=== PATIENT | female | born 1990 | race Caucasian/White ===

== ENCOUNTER 2019-07-08 16:55 | Outpatient (RCR) | payer OTHER, SELFPAY ==
[2019-07-09] MEDS: RHO(D) IMMUNE GLOBULIN 300 MCG SYRINGE IM (12:54)
== END 2019-10-06 23:59 | disposition home or self-care (01) ==
LOC: ANHLAB 16:55
PROVIDERS: PCP Advanced Practice Midwife; Visit Provider Advanced Practice Midwife
DX: O36.0990 Maternal care for other rhesus isoimmunization, unspecified trimester, not applicable or unspecified (principal); Z3A.00 Weeks of gestation of pregnancy not specified
CPT/HCPCS: 36415; 90384; 96372; J2790

== ENCOUNTER 2019-08-15 15:08 | Outpatient (RCR) | payer OTHER, SELFPAY ==
[2019-07-28 17:27] VITALS: BP 134/70; PULSE 106
[2019-08-15 15:54] VITALS: BP 112/62; PULSE 103
== END 2019-09-17 07:36 | disposition home or self-care (01) ==
LOC: ANHOBOP 15:08
PROVIDERS: PCP Advanced Practice Midwife; Visit Provider Obstetrics & Gynecology
DX: O24.419 Gestational diabetes mellitus in pregnancy, unspecified control (principal); Z3A.32 32 weeks gestation of pregnancy; Z3A.34 34 weeks gestation of pregnancy
CPT/HCPCS: 59025

== ENCOUNTER 2019-08-18 14:00 | Outpatient (RCR) | payer OTHER, SELFPAY ==
--- NOTE | 2019-06-30 15:21 | PTOPEVAL ---
INITIAL PHYSICAL THERAPY EVALUATION and PLAN OF CARE Thank you for referring Tomeka to [facility]. Please review, sign, date and return this plan of care LEOBARDO. She will be seen 2x/wk x 4 wks in PT. I agree with and certify that the following plan of care is medically necessary. Referring Physician Date Admitting Provider: Attending Provider: María Polo CNM Referring Provider: *PT Outpatient Evaluation Start: 06/30/19 13:54 Freq: Status: Active Protocol: Document 06/30/19 13:45 ISIDRO (Rec: 06/30/19 15:21 ISIDRO [id number]) Therapy Assessment Status Assessment Status Assessment Status Evaluation Outpatient Past Medical History Neurological History Hx Neurological Disorders No Significant History Cardiovascular History Hx Cardiac Disorders No Significant History Respiratory History Hx Respiratory Disorders No Significant History Gastrointestinal History Hx Gastrointestinal Disorders No Significant History Genitourinary History Hx Genitourinary Disorders No Significant History Musculoskeletal History Hx Back Pain Yes: beginning May 2019-during Hematological History Hx Hematological Disorders No Significant History Endocrine History Hx Endocrine Disorders No Significant History HEENT History Hx HEENT Disorders No Significant History Integumentary History Hx Skin Disorders No Significant History Reproductive History Hx Reproductive Disorders No Significant History Evaluation Information Problem Diagnosis back and R leg pain Onset ~ 1 month ago Additional Evaluation Detail slight similiar pain with previous pregnancies - x 4, this is 5th ; no difficulties with labor and delivery - smaller babies Subjective Information just began to notice it - Query Text:As Reported By Patient/ walking one day - if pain hits Family - increased difficulty with walking - wt bearing on R leg. Some days does okay with walking. Always worse when lying down. Hard to get up in morning. Difficulty with getting sleep - tossing/ turning/up for urination Pain can run down entire R leg - shooting. Almost constant when lying down this episode of pain with Prior Level of Function Activity Level (Last 3 Months) Occupation stay at home Mom
--- NOTE | 2019-07-14 14:27 | PCPTNOTE ---
Patient called & cancelled scheduled appointment this date due to snowy weather.
--- NOTE | 2019-07-21 12:43 | PCPTNOTE ---
Patient called & cancelled scheduled appointment this date.
--- NOTE | 2019-07-30 10:28 | PTOPEVAL ---
PHYSICAL THERAPY RE-EVALUATION NOTE AND UPDATED PLAN OF CARE Thank you for referring Eve to [facility] [place] [facility] [place]. Please review, sign, date and return this updated plan of care LEOBARDO. Eve with continue in PT 1x/wk x 4 more weeks for further resolution of her symptoms. I agree with and certify that the following plan of care is medically necessary. Referring Physician Date Admitting Provider: Attending Provider: María Polo CNM Referring Provider: *PT Outpatient Evaluation Start: 06/30/19 13:54 Freq: Status: Active Protocol: Document 07/30/19 09:10 ISIDRO (Rec: 07/30/19 10:28 [email or web address] [id number]) Therapy Assessment Status Assessment Status Assessment Status Re-evaluation Evaluation Information Problem Subjective Information Eve states that sleeping Query Text:As Reported By Patient/ ability has improved 70% or Family better. After for sitting for 15 minutes or greater, will have discomfort with standing - R lower back region. If she can get this side to pop then she will be okay. Household activities such as vacuuming, picking up toys, etc are still difficult for her. Also, while driving - moving foot from brake to gas and back can be uncomfortable until she feels the pop in R lower back. Pain Assessment Timing of Pain Assessment Timing of Pain Assessment Assessment Pain Scale Pain Scale Used Numeric (1 - 10) Self Report Pain Assessment Lower Back Reported Pain Level 4 Pain Description Aching,Pulling,Sharp Current Pain Intensity 4 Lowest Pain Intensity 2 Greatest Pain Intensity 8 Pain Aggravating Factors Bending,Prolonged Position Other Pain Aggravating Factors transitional activities-sit to stand, bending over, brake/ gas pedal motion Pain Behaviors Guarding Pain Relief Interventions Used By Exercise Patient Interventions Used By Clinicians Exercise,Heat,Joint Mobilization,Mobilization, Manual Therapy Techniques, Myofascial Release Pain Score Pain Score 4: Self Report Cervical and Lumbar ROM Lumbar ROM Lumbar ROM 50% of Normal Lumbar Comments improved pelvic alignment, but decreased sacral mobility
--- NOTE | 2019-08-11 09:41 | PCPTNOTE ---
vEe called & cancelled scheduled appointment this date due to having another scheduled appointment elsewhere.[ ]
--- NOTE | 2019-08-19 08:25 | PTOPEVAL ---
PHYSICAL THERAPY DISCHARGE NOTE Thank you for referring Eve to [facility]. All goals have been achieved in PT. If her discomfort returns post , I would enjoy seeing her once she is able to resume PT. I agree with Eve's discharge from PT. Referring Physician Date Admitting Provider: Attending Provider: María Polo CNM Referring Provider: *PT Outpatient Evaluation Start: 06/30/19 13:54 Freq: Status: Active Protocol: Document 08/18/19 14:10 ISIDRO (Rec: 08/19/19 08:25 ISIDRO [id number]) Therapy Assessment Status Assessment Status Assessment Status Discharge Evaluation Information Problem Subjective Information Eve reports the R sided Query Text:As Reported By Patient/ popping (in R SIJ region) Family doesn't happen as often and when it does she can get it to pop back into place easily now. With transfers from sitting to standing - the popping happens every once in awhile. Sleeping is at least 90% better. Ability to do household activities - 90% improved as well. Pain Assessment Timing of Pain Assessment Timing of Pain Assessment Assessment Pain Scale Pain Scale Used Numeric (1 - 10) Self Report Pain Assessment Lower Back Reported Pain Level 0 Current Pain Intensity 0 Lowest Pain Intensity 0 Greatest Pain Intensity 5 Pain Score Pain Score 0: Self Report Cervical and Lumbar ROM Lumbar ROM Lumbar Comments Pelvis level in standing - equal mobility at SIJ with trunk ROM which is now limited into flexion from . Extension and side bending are WNL. 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 Episodes of discomfort/popping have greatly lessened and not as intense as they were initially . Eve is now able to sleep with increase comfort/ability as well as perform usual ADLs
== END 2019-08-28 14:26 | disposition home or self-care (01) ==
LOC: ANHPT 14:00
PROVIDERS: PCP Advanced Practice Midwife; Visit Provider Advanced Practice Midwife
DX: M54.9 Dorsalgia, unspecified (principal); M79.669 Pain in unspecified lower leg
CPT/HCPCS: 97110; 97140; 97162

== ENCOUNTER 2019-09-16 05:15 | Inpatient (IN) | payer OTHER, SELFPAY ==
[2019-09-16] VITALS (98 sets, daily range): BP systolic 79–142; BP diastolic 53–106; PULSE 60–257; RESP 18; TEMP 36.5–36.7; O2SAT 75–100; BMI 27.5
--- NOTE | 2019-09-16 06:11 | LDADM ---
This patient, Tomeka Leslie, was admitted to Labor/Delivery/Recovery 103 on 09/16/19 at 05:15. Plans for labor, pain management and were discussed with patient. Patient/family oriented to hospital policies and general routines including ID bracelet, bed and alarms, visiting hours, pain management, procedures, bathroom and other care routines, personal items, smoking policy, room service/diet and guest tray routines, infant security routines, and visiting hours. Patient/Family are encouraged to report perceived risks to care and to ask questions if they do not understand what they are told or what they should do. See OBIX for further documentation.
[2019-09-16 06:26] LABS: Basophils Percent Auto 0.5 % (0.2-1.2); Eosinophils Absolute Auto 0.1 K/mm3 (0-0.3); Hematocrit 34.5 % (37.0-47.0); Hemoglobin 11.3 g/dL (12.0-15.0); Immature Granulocyte Absolute 0.09 K/mm3 (0.00-0.031); Lymphocytes Absolute Auto 1.34 K/mm3 (0.9-3.2); Lymphocytes Percent Auto 15.1 % (18.3-44.2); Mean Corpuscular HGB Conc 32.8 g/dl (32-36); Mean Corpuscular Hemoglobin 29.4 pg (26-34); Mean Corpuscular Volume 89.8 fl (80-100); Mean Platelet Volume 9.1 fl (7.4-10.4); Monocytes Absolute Auto 0.6 K/mm3 (0.1-0.6); Monocytes Percent Auto 7.2 % (2.6-8.5); Neutrophils Absolute Auto 6.7 K/mm3 (1.3-6.7); Neutrophils Percent Auto 75.2 % (45.5-73.1); Platelet Count Result 303 k/mm3 (150-375); Red Blood Count 3.84 M/mm3 (4.2-5.4); Red Cell Distribution Width 16.1 % (11.5-14.5); White Blood Count 8.9 K/mm3 (4.5-10.0)
[2019-09-16] MEDS: LACTATED RINGERS 1,000 ML 125 ML IV CONT ×2 (06:34→09:28)
--- NOTE | 2019-09-16 07:30 | P.HP_ITS ---
Obstetrics - Admit Note Admission Note: record reviewed. No pertinent additions to the history and/or any subsequent changes in the physical findings that are not consistent with the expected course of the were found. IOL, diet controlled GDM Additions to the history and/or subsequent changes in the physical findings fo llow. None.
[2019-09-16 08:09] LABS: Glucose Point of Care 94 (65-105)
[2019-09-16 09:00] LABS: Rapid Plasma Reagin Non-Reactive (NonReactive)
--- NOTE | 2019-09-16 09:10 | WPDANESEPP ---
Anes - Eval Pre Procedure Procedure: Labor Epidural Date/Time: 09/16/19 09:10 Surgeon: Everardo Preop Diagnosis: Labor Pain Pre Op Diagnosis: induction of labor Patient Data Age: 29 Gender: F Height: 5 ft 6 in Weight: 77.3 kg Last Vital Signs Pulse 89 09/16/19 08:46 BP 140/88 09/16/19 08:46 Allergies Allergy/AdvReac Type Severity Reaction Status Date / Time metoclopramide Allergy Mild Muscle Verified 11/21/18 18:30 Spasms Sulfa (Sulfonamide Allergy Mild Vomiting Verified 11/21/18 18:30 Antibiotics) Home Medications Medication Instructions Recorded Confirmed Type PNV cmb#95-ferrous fumarate-FA 1 tablet PO DAILY 08/15/19 08/15/19 History [] Phenergan 1 tablet PO Q6H PRN 08/15/19 08/15/19 History ferrous sulfate [Slow Fe] 142 mg PO DAILY 08/15/19 08/15/19 History insulin NPH isoph U-100 human 10 unit SUBCUT BID 08/15/19 08/15/19 History [Novolin N NPH U-100 Insulin] Laboratory Tests 09/16/19 09/16/19 09/16/19 05:59 05:59 05:59 WBC 8.9 K/mm3 K/mm3 (4.5-10.0) RBC 3.84 M/mm3 L M/mm3 (4.2-5.4) Hgb 11.3 g/dL L g/dL (12.0-15.0) Hct 34.5 % L % (37.0-47.0) MCV 89.8 fl fl (80-100) MCH 29.4 pg pg (26-34) MCHC 32.8 g/dl g/dl (32-36) RDW 16.1 % H % (11.5-14.5) Plt Count 303 k/mm3 k/mm3 (150-375) MPV 9.1 fl fl (7.4-10.4) Immature Gran % (Auto) 1.0 % H % (0-0.5) Neut % (Auto) 75.2 % H % (45.5-73.1) Lymph % (Auto) 15.1 % L % (18.3-44.2) Ida % (Auto) 7.2 % % (2.6-8.5) Eos % (Auto) 1.0 % % (0-4.4) Baso % (Auto) 0.5 % % (0.2-1.2) Lymph # (Auto) 1.34 K/mm3 K/mm3 (0.9-3.2) Ida # (Auto) 0.6 K/mm3 K/mm3 (0.1-0.6) Eos # (Auto) 0.1 K/mm3 K/mm3 (0-0.3) Baso # (Auto) 0.0 K/mm3 K/mm3 (0.0-0.1) Abs Immat Gran (auto) 0.09 K/mm3 H K/mm3 (0.00-0.031) Absolute Neuts (auto) 6.7 K/mm3 K/mm3 (1.3-6.7) Absolute Nucleated RBC 0.0 K/mm3 K/mm3 (0.0-0.012) Nucleated RBC % 0.0 % % (0.0-0.2) POC Capillary Glucose RPR Non-reactive (NonReactive) Blood Type A Negative Antibody Screen Negative 09/16/19 08:07 WBC RBC Hgb Hct MCV MCH MCHC RDW Plt Count MPV Immature Gran % (Auto) Neut % (Auto) Lymph % (Auto) Ida % (Auto) Eos % (Auto) Baso % (Auto) Lymph # (Auto) Ida # (Auto) Eos # (Auto) Baso # (Auto) Abs Immat Gran (auto) Absolute Neuts (auto) Absolute Nucleated RBC Nucleated RBC % POC Capillary Glucose 94 mg/dl mg/dl (65-105) RPR Blood Type Antibody Screen : gestational age (MISSY 09/21/19, ) Patient hx anesthesia problems: none Family hx anesthesia problems: none PMFSH Social History Social History Smoking packs per day: 0.1 Smoking cigarettes per day: 2.0 Years smoked: 2 Smoking pack-years: 0.20 Smoking status: Former smoker Substance use: never Gender identity (if verbalized by the patient): Female Spiritual care concerns: No Exam Day of Procedure 09/16/19 09:10
[2019-09-16] MEDS: ONDANSETRON INJ 4 MG/2 ML VIAL IV PUSH (09:35)
[2019-09-16 10:05] LABS: Glucose Point of Care 87 (65-105)
[2019-09-16 12:15] LABS: Glucose Point of Care 88 (65-105)
--- NOTE | 2019-09-16 12:46 | P.PCNOB_ITS ---
OB - Delivery Note Procedure Delivery date: 09/16/19 Procedure: vaginal delivery events: Gestational Diabetes Intrapartal events: None Induction method: AROM and per pitocin protocol Delivery monitor: external FHT and external uterine Route of delivery: Laceration description: Perineal - 1st Degree Delivery repair: vicryl Specimen: Yes Estimated blood loss (mL): 75 Anesthesia type: Epidural Narrative: small left labial hematoma noted after repair [place] Baby Date of : 09/16/19 Time of : 12:31 Weeks of gestation at delivery: 39 Infant gender: Male Weight (pounds): 6 Weight (ounces): 6 presentation: vertex position: Right Occiput Anterior Placenta delivery description: Spontaneous cord vessel description: 3 Vessels, Nuchal Cord, True Knot, Loose and Clamped/Cut score one minute: 8 score five minutes: 9
[2019-09-16 13:53] LABS: Amphetamine Screen Urine Negative (Negative); Barbiturate Screen Urine Negative (Negative); Benzodiazepines Screen Urine Negative (Negative); Cannabinoid Screen Urine Positive (Negative); Cocaine Screen Urine Negative (Negative); Methadone Screen Urine Negative (Negative); Opiate Screen Urine Negative (Negative); Phencyclidine Screen Urine Negative (Negative)
--- NOTE | 2019-09-16 16:03 | PC.NURSE ---
PT arrived on unit via wheelchair accompanied by spouse and and taken to room 279. PT oriented to room and surrounding area. PT introductions made and plan of care discussed per post , pain management, breast feeding, daily care activities. Welcome packet reviewed and discussed. PT verbalized understanding of such instructions.
[2019-09-16] MEDS: IBUPROFEN 600 MG TABLET PO (18:22)
[2019-09-16] MEDS: LANOLIN (LANSINOH) 7.5 GM CREAM 1 APPLIC TOPICAL (18:23)
[2019-09-16] MEDS: DOCUSATE SODIUM 100 MG CAPSULE PO (18:23)
[2019-09-16] MEDS: ACETAMINOPHEN 325 MG TABLET 650 MG PO (22:41)
[2019-09-17 00:25] VITALS: BP 124/72; PULSE 79; RESP 16; TEMP 36.7; O2SAT 100
[2019-09-17] MEDS: IBUPROFEN 600 MG TABLET PO ×4 (01:39→20:15)
[2019-09-17 04:30] LABS: Hematocrit 31.9 % (37.0-47.0)
[2019-09-17] MEDS: ACETAMINOPHEN 325 MG TABLET 650 MG PO ×4 (06:14→20:15)
--- NOTE | 2019-09-17 07:00 | PC.NURSE ---
PT introductions made and plan of care discussed per post , pain management, breast feeding, pumping, bottle feeding, daily care activities. PT verbalized understanding of such care.
--- NOTE | 2019-09-17 07:35 | PM.OBPNVD ---
OB - PN: Subj Subjective Date/time seen: 09/17/19 07:35 Patient comments: no complaints, pain well controlled and other (Lochia similar to menses) [place] baby status: doing well OB - PN: Obj Data Labs CBC & Chem 7: 09/17/19 04:19 Labs: Laboratory Results - last 24 hr 09/16/19 09/16/19 09/16/19 05:59 08:07 10:02 Hgb Hct POC Capillary Glucose 94 87 Urine Opiates Screen Urine Methadone Screen Ur Barbiturates Screen Ur Phencyclidine Scrn Ur Amphetamine Screen U Benzodiazepines Scrn Urine Cocaine Screen U Cannabinoids Screen RPR Non-reactive 09/16/19 09/16/19 09/17/19 12:09 13:27 04:19 Hgb 10.0 L Hct 31.9 L POC Capillary Glucose 88 Urine Opiates Screen Negative Urine Methadone Screen Negative Ur Barbiturates Screen Negative Ur Phencyclidine Scrn Negative Ur Amphetamine Screen Negative U Benzodiazepines Scrn Negative Urine Cocaine Screen Negative U Cannabinoids Screen Positive A RPR OB - PN A/P Plan day: 1 (s/p vaginal delivery, doing well) Plan: routine care Time Spent With Patient Time: Total time spent is greater than 50% in coordination of care (as documented) at patient's floor/unit and/or counseling patient: Exam Const: General: no acute distress GI: Inspection: other (Fundus firm and nontender at umbilicus) GI Palp: Yes Soft to palpation and No Tenderness to palpation present (GI) Extrem: General: no edema
[2019-09-17 08:00] VITALS: BP 144/70; PULSE 91; RESP 16; TEMP 36.6; O2SAT 100
--- NOTE | 2019-09-17 08:28 | WPDANLDPN2 ---
Anes-Prog Note L&D Date/Time: 09/17/19 08:28 Comfortable throughout: labor and delivery Neuraxial method: epidural Epidural/Spinal procedure site: clean & non-tender Neuro status: Neuro function grossly intact. Cardiovascular status: normal Respiratory status: normal Airway patency: baseline Mental status: baseline Post-Op hydration status: normal Vital Signs: Last Vital Signs Temp 36.7 C 09/17/19 00:25 Pulse 79 09/17/19 00:25 Resp 16 09/17/19 00:25 BP 124/72 09/17/19 00:25 Pulse Ox 100 09/17/19 00:25 I/O: Intake & Output 09/16/19 09/17/19 09/17/19 23:59 07:59 15:59 Intake Total 100 Balance 100 Patient feedback: Patient satisfied with anesthetic care.
[2019-09-17] MEDS: DOCUSATE SODIUM 100 MG CAPSULE PO ×2 (09:53→17:43)
[2019-09-17] MEDS: MULTIVIT/MIN/PREN/FOL AC/IRON TABLET 1 TAB PO (09:53)
[2019-09-17 10:00] VITALS: PULSE 91; RESP 16; O2SAT 100
--- NOTE | 2019-09-17 14:30 | PC.NURSE ---
Consult with pt., mother reports infant has difficulties with latching. Mother uses a nipple shield at times, mother will supplement and then pump. Mother reports she has had similar feeding with first 4 children and has gone on to breastfeed each for several months. Requested mother call out next feeding for assist/observation.
[2019-09-17 21:18] VITALS: BP 117/82; PULSE 67; RESP 13; TEMP 35.8; O2SAT 100
[2019-09-18] MEDS: ACETAMINOPHEN 325 MG TABLET 650 MG PO ×3 (00:35→13:06)
[2019-09-18] MEDS: IBUPROFEN 600 MG TABLET PO ×2 (02:20→10:03)
--- NOTE | 2019-09-18 07:22 | PM.OBPNVD ---
OB - PN: Subj Subjective Date/time seen: 09/18/19 07:22 Patient comments: no complaints baby status: doing well OB - PN: Obj Data Labs CBC & Chem 7: 09/17/19 04:19 OB - PN A/P Plan day: 2 Plan: discharge home Time Spent With Patient Time: Total time spent is greater than 50% in coordination of care (as documented) at patient's floor/unit and/or counseling patient: Review of Systems Review of Systems: All systems reviewed & are unremarkable except as noted in HPI and below Constitutional: Constitutional: Reports as per HPI Exam Const: General: comfortable Resp: Effort & Inspection: normal respiratory effort Psych: Appearance: grossly normal Affect: normal affect Attitude: cooperative
--- NOTE | 2019-09-18 07:22 | PM.OBDSVD ---
DS: Diagnosis Admitting Diagnosis Admitting Diagnosis: MIL for GDM OB - DS: Summary OB Procedures : None OB Procedures Intrapartum: Spontaneous Vag Delivery OB Procedures: : None Time Spent with Patient Time attestation: Total time spent providing and/or coordinating discharge services: Exam Const: General: comfortable Resp: Effort & Inspection: normal respiratory effort Psych: Appearance: grossly normal Mental Status: mental status grossly normal DS: Data Data Completed and Pending Pending studies at discharge: Pending at discharge 09/16/19 18:01 Surgical [PTH] Routine Discharge Plan Discharge Attending physician on discharge: Eren Mcgee Discharging Clinician: María Polo Patient Disposition: Home, Self-Care Activity: pelvic rest Diet: regular Patient Instructions: Antibiotic Form Stand Alone Forms: General Discharge Information Follow-up/Referrals: María Polo CNM [Primary Care Provider] - 4 Weeks Discharge Medications: Continued Slow Fe 142 mg (45 mg iron) Tablet Extended Release 142 mg PO DAILY RF: 0 PNV cmb#95-ferrous fumarate-FA [] 28 mg iron- 800 mcg Tablet 1 tablet PO DAILY RF: 0 Discontinued Novolin N NPH U-100 Insulin 100 unit/mL Suspension 10 unit SUBCUT BID RF: 0 Phenergan 12.5 mg 1 tablet PO Q6H PRN (Reason: Nausea) RF: 0 Date of admission: 09/16/19 05:15 Primary Care Provider: María Polo Admitting Provider: Eren Mcgee Attending physician on admission: Eren Mcgee
[2019-09-18] MEDS: MULTIVIT/MIN/PREN/FOL AC/IRON TABLET 1 TAB PO (07:23)
[2019-09-18] MEDS: BENZOCAINE 20% AER SPR (*SP) 56 GM CAN 1 SPRAY TOPICAL (07:26)
[2019-09-18] MEDS: WITCH HAZEL 40 PADS 1 PAD TOPICAL (07:26)
[2019-09-18 07:30] VITALS: BP 131/78; PULSE 80; RESP 18; TEMP 36.7; O2SAT 99
--- NOTE | 2019-09-18 15:48 | PC.NURSE ---
[id number] Mother verbalizes that she knows baby is to have f/u kidney ultrasound as outpt and plans to schedule it.
[2019-09-19 14:00] VITALS: BP 124/75; PULSE 79; RESP 18; TEMP 36.7
== END 2019-09-18 13:55 | disposition home or self-care (01) | DRG 560 ==
LOC: ANHLDR 05:43 → ANHOB2 16:09
PROVIDERS: Admitting Provider Obstetrics & Gynecology; PCP Advanced Practice Midwife; Visit Provider Obstetrics & Gynecology
DX: O24.420 Gestational diabetes mellitus in childbirth, diet controlled (principal); Z37.0 Single live birth; Z3A.39 39 weeks gestation of pregnancy; O70.0 First degree perineal laceration during delivery; O69.2XX0 Labor and delivery complicated by other cord entanglement, with compression, not applicable or unspecified; O99.324 Drug use complicating childbirth; F12.90 Cannabis use, unspecified, uncomplicated
CPT/HCPCS: 36415; 80307; 85014; 85018; 85025; 86592; 86850; 86900; 86901; 88307; A9270; J2405; J2590; J2795; J7120

== ENCOUNTER 2021-01-26 12:30 | Outpatient (RCR) | payer OTHER, SELFPAY ==
--- NOTE | 2020-11-02 11:46 | PTOPEVAL ---
PHYSICAL THERAPY EVALUATION Thank you for referring Tomeka Leslie to [facility] [place] [facility] [place] Eve was evaluated for the dx of left SI/low back pain. The patient is scheduled to be seen for therapy? 2 x/week for 4 weeks. Please review, sign, date and return this plan of care LEOBARDO. I agree with and certify that the following plan of care is medically necessary. Referring Physician Date Attending Provider: Nidhi Srinivasan, *PT Outpatient Evaluation Start: 11/02/20 10:35 Freq: Status: Active Protocol: Document 11/02/20 10:35 MLV (Rec: 11/02/20 11:24 MLV [id number]) Therapy Assessment Status Assessment Status Evaluation Evaluation Information Problem Diagnosis low back pain Onset around Apr, flared in Aug Cause no injury but when pain began Additional Evaluation Detail Pt had therapy on her back during her last pregnance due to pelvic alignment issues. Pt got relief from therapy then pain returned after delivery but pain is different. The pain is now an ache versus the 'catch feeling' and is across the whole back and more left SI. 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 Pt does her Family housework and cares for her children including home schooling. Pt has most difficulty with laundry, lifting child from floor, handwashing dishes. Pt is compliant with prior HEP and does ok except for one exercise. Pain Assessment Timing of Pain Assessment Timing of Pain Assessment Assessment Pain Scale Pain Scale Used Numeric (1 - 10) Self Report Pain Assessment Lower Back Reported Pain Level 6 Pain Description Aching Pain Frequency Acute,Chronic Other Pain Description left SI and across low back; end of day worse Greatest Pain Intensity 10 Pain Aggravating Factors Prolonged Position,Sitting, Walking,Weight Bearing/ Standing Pain Score Pain Score 6: Self Report Interventions Used Interventions Used By Clinicians Education,Exercise,Heat
--- NOTE | 2020-11-29 16:31 | PTOPEVAL ---
PHYSICAL THERAPY RE-EVALUATION and UPDATED PLAN OF CARE Thank you for referring Tomeka Leslie to [facility] [place]Note 3].? Tomeka is progressing towards goals set - but has not met them. She will still benefit from skilled PT 1-2x/week for 4-6 weeks. Please review, sign, date and return this plan of care LEOBARDO. I agree with and certify that the following plan of care is medically necessary. Referring Physician Date Admitting Provider: Attending Provider: Nidhi Srinivasan, MD Referring Provider: Therapy Assessment Status Assessment Status Assessment Status Re-evaluation Evaluation Information Problem Diagnosis low back pain Subjective Information Tomeka reports while Query Text:As Reported By Patient/ walking when out of town - she Family sneezed and felt sharp pain in pubic symphysis region. Pain lasted for a few hours. She was glad that she brought her hot pack for her back pain while away. Still having difficulty with bending - especially to the floor. Limited with 30 min for standing, etc. She can physically lift her youngest child - but has discomfort doing so. Pain Assessment Self Report Pain Assessment Lower Back Reported Pain Level 6 Pain Description Aching,Sharp Lowest Pain Intensity 4 Greatest Pain Intensity 9 Pain Aggravating Factors Bending,Walking,Weight Bearing /Standing Cervical and Lumbar ROM Lumbar ROM Lumbar Flexion (0-90) 40 Query Text:Active in Degrees Lumbar Flexion Active Ankle Query Text:Hands to: Lumbar Extension (0-40) 15 Query Text:Active in Degrees Lumbar Lateral Flexion Right (0-40) 20 Query Text:Active in Degrees Lumbar Lateral Flexion Left (0-40) 25 Query Text:Active in Degrees Lumbar Comments with trunk flexion - increased lumbar pain with return to neutral postion trunk extension - pain throughout lumbar region R side bend - limited with motion L side bend - increased pain - pulling sensation R side with return to neutral position from forward flexion - decreased segmental reversal
--- NOTE | 2020-12-01 15:26 | PCPTNOTE ---
Patient called & cancelled scheduled appointment this date due to suffering an injury to her finger.
--- NOTE | 2020-12-27 13:34 | PTOPEVAL ---
PHYSICAL THERAPY RE-EVALUATION and UPDATED PLAN OF CARE Thank you for referring Tomeka Leslie to [facility] [place].? Tomeka is making progress towards goals - but still having higher pain levels which is interfering with usual ADLs, IADLs, and activities with children. She scheduled to continue with physical therapy? 2x/week for 4 weeks. Please review, sign, date and return this plan of care LEOBARDO. She may benefit from diagnostic imaging such as a MRI at this time due to continuation of her pain. I agree with and certify that the following plan of care is medically necessary. 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 She was able to go for a short walk with her kids yesterday - less than 1/2 mile. Limited to ~ 1 hour with combination of sitting and standing before she needs a break. Pain Assessment Self Report Pain Assessment Lower Back Reported Pain Level 6 Pain Description Dull,Stabbing Radicular Pain Location all the way to L ankle Pain Frequency Continuous Lowest Pain Intensity 4 Greatest Pain Intensity 8 Cervical and Lumbar ROM Lumbar ROM Lumbar Flexion (0-90) 50 Query Text:Active in Degrees Lumbar Extension (0-40) 15 Query Text:Active in Degrees Lumbar Lateral Flexion Right (0-40) 20 Query Text:Active in Degrees Lumbar Lateral Flexion Left (0-40) 20 Query Text:Active in Degrees Lumbar Comments with trunk flexion - increased lumbar pain less discomfort with return to neutral - improved spinal mechanics trunk extension - pain throughout lumbar region R side bend - discomfort present L side bend - discomfort present Palpation Assessment Palpation Palpation + R anterior innominate, L on L sacrum P-A L5 - mild stiffness, but less pain, increase with mobility but increase with pain L4-2 worse soreness/ discomfort at L2 Special Test-Spine
--- NOTE | 2021-01-03 14:47 | PCPTNOTE ---
Patient called & cancelled scheduled appointment this date due to a family emergency.
--- NOTE | 2021-01-24 14:52 | PCPTNOTE ---
Patient called & cancelled scheduled appointment this date due to, stating she doesn't drive in the rain.
--- NOTE | 2021-01-26 17:08 | PTOPEVAL ---
PHYSICAL THERAPY DISCHARGE SUMMARY Thank you for referring Tomeka Leslie to [facility].? Tomeka has been seen in PT x 17 visits in PT. She has made some progress towards goals set but still having increased levels of pain as well as L LE radicular pain. She is at end point with PT at this time. I would recommend further diagnostic testing. I agree with Tomeka's discharge from PT. Referring Physician Date Admitting Provider: Attending Provider: Nidhi Srinivasan, MD Referring Provider: Therapy Assessment Status Assessment Status Assessment Status Discharge Evaluation Information Problem Diagnosis low back pain Subjective Information Tomeka reports still waking Query Text:As Reported By Patient/ up a lot, needing to Family reposition, using heating pad - has to reposition every hour . Really stiff in the mornings - gets hot shower, using heating pad - takes about an hour to get moving. Better as the day starts, but worsens again towards the end of the day. Has to watch her activity level. Pain is about the same, but able to move better within the pain levels. Able to keep her legs moving . Pain travels down L leg to ankle. PT has helped temporarily - but pain always returns. Pain Assessment Self Report Pain Assessment Lower Back Reported Pain Level 6 Pain Description Aching,Stabbing,Tightness Radicular Pain Location L leg to ankle Lowest Pain Intensity 4 Greatest Pain Intensity 9 Cervical and Lumbar ROM Lumbar ROM Normal Lumbar Segmental Motion No Lumbar Comments reduced trunk flexion - ~ 35 deg - with return to neutral - no lumbar spine reversal - spine goes into extension and uses gluteal and back muscles to come back up to neutral WNL for trunk extension, side bending with appropriate lumbar segmental movement Palpation Assessment Palpation Palpation pelvis level in supine and standing P-A mob - tenderness at L sacral base, L4>L3>L5 mild increase in soft tissue
== END 2021-01-27 07:57 | disposition home or self-care (01) ==
LOC: ANHPT 12:30
PROVIDERS: PCP Family Medicine; Visit Provider Family Medicine
DX: M54.5 Low back pain (principal)
CPT/HCPCS: 97014; 97110; 97140; 97161; 97162; G0283

== ENCOUNTER 2022-12-26 17:30 | Outpatient (RCR) | payer OTHER, SELFPAY ==
[2022-12-26 17:56] LABS: Hematocrit 33.6 % (37.0-47.0); Hemoglobin 11.2 g/dL (12.0-15.0)
[2022-12-26 18:52] LABS: HIV 1/2 Ab P24 Ag Result Negative (Negative)
[2022-12-27] MEDS: RHO(D) IMMUNE GLOBULIN 300 MCG/2 ML SYRINGE IM (17:35)
== END 2023-03-26 23:59 | disposition home or self-care (01) ==
LOC: ANHLAB 17:30
PROVIDERS: PCP Family Medicine; Visit Provider Advanced Practice Midwife
DX: Z11.4 Encounter for screening for human immunodeficiency virus [HIV] (principal); Z29.13 Encounter for prophylactic Rho(D) immune globulin; O36.0190 Maternal care for anti-D [Rh] antibodies, unspecified trimester, not applicable or unspecified; Z3A.00 Weeks of gestation of pregnancy not specified
CPT/HCPCS: 36415; 85014; 85018; 85461; 86703; 86850; 86900; 86901; 90384; 96372; G0432; J2790

== ENCOUNTER 2023-02-09 09:53 | Outpatient (RCR) | payer OTHER, SELFPAY ==
[2023-02-09 10:30] VITALS: BP 114/76; PULSE 84
== END 2023-05-08 11:45 | disposition home or self-care (01) ==
LOC: ANHOBOP 09:53
PROVIDERS: PCP Family Medicine; Visit Provider Obstetrics & Gynecology
DX: O24.419 Gestational diabetes mellitus in pregnancy, unspecified control (principal); O36.5930 Maternal care for other known or suspected poor fetal growth, third trimester, not applicable or unspecified; Z3A.37 37 weeks gestation of pregnancy
CPT/HCPCS: 59025

== ENCOUNTER 2023-02-13 19:33 | Inpatient (IN) | payer OTHER, SELFPAY ==
[2023-02-13] VITALS (66 sets, daily range): BP systolic 111–148; BP diastolic 60–79; PULSE 65–98; TEMP 36.4–36.6; O2SAT 98–100; BMI 25.3
--- NOTE | 2023-02-13 20:28 | LDADM ---
This patient, Tomeka Leslie, was admitted to Labor/Delivery/Recovery 105 on 02/13/23 at 19:33. Plans for labor, pain management and were discussed with patient. Patient/family oriented to hospital policies and general routines including ID bracelet, bed and alarms, visiting hours, pain management, procedures, bathroom and other care routines, personal items, smoking policy, room service/diet and guest tray routines, infant security routines, and visiting hours. Patient/Family are encouraged to report perceived risks to care and to ask questions if they do not understand what they are told or what they should do. See OBIX for further documentation.
[2023-02-13] MEDS: LACTATED RINGERS 1,000 ML 125 ML IV CONT ×2 (20:53→21:55)
[2023-02-13 21:08] LABS: Basophils Percent Auto 0.4 % (0.2-1.2); Eosinophils Percent Auto 0.1 % (0-4.4); Hematocrit 31.2 % (37.0-47.0); Hemoglobin 10.1 g/dL (12.0-15.0); Immature Granulocyte Absolute 0.07 K/mm3 (0.00-0.031); Immature Granulocyte Percent A 0.7 % (0-0.5); Lymphocytes Absolute Auto 1.58 K/mm3 (0.9-3.2); Mean Corpuscular HGB Conc 32.4 g/dl (32-36); Mean Corpuscular Hemoglobin 28.6 pg (26-34); Mean Corpuscular Volume 88.4 fl (80-100); Mean Platelet Volume 8.6 fl (7.4-10.4); Monocytes Absolute Auto 0.6 K/mm3 (0.1-0.6); Monocytes Percent Auto 6.2 % (2.6-8.5); Neutrophils Absolute Auto 7.6 K/mm3 (1.3-6.7); Neutrophils Percent Auto 76.6 % (45.5-73.1); Platelet Count Result 229 k/mm3 (150-375); Red Blood Count 3.53 M/mm3 (4.2-5.4); Red Cell Distribution Width 13.7 % (11.5-14.5); White Blood Count 9.9 K/mm3 (4.5-10.0)
[2023-02-13] MEDS: fentaNYL CITRATE INJ (*CRX) 100 MCG/2 ML VIAL 50 MCG IV PUSH (21:55)
--- NOTE | 2023-02-13 22:05 | WPDANESEPP ---
Anes - Eval Pre Procedure Procedure: labor epidural Date/Time: 02/13/23 22:05 Surgeon: ferny Preop Diagnosis: pain during labor Pre Op Diagnosis: Spontaneous Rupture of Membranes Patient Data Age: 32 Gender: F Height: 1.65 m Weight: 69 kg Last Vital Signs Pulse 76 02/13/23 21:47 BP 122/77 02/13/23 21:47 O2 Del Method Room Air 02/13/23 20:27 Allergies Allergy/AdvReac Type Severity Reaction Status Date / Time metoclopramide Allergy Mild Muscle Verified 02/09/23 10:29 Spasms Sulfa (Sulfonamide Allergy Mild Vomiting Verified 02/09/23 10:29 Antibiotics) Home Medications Medication Instructions Recorded Confirmed Type ferrous sulfate 142 mg (45 mg 142 mg PO DAILY 08/15/19 02/09/23 History iron) tablet,extended release (Slow Fe) vit no.95-ferrous 1 tablet PO DAILY 08/15/19 02/09/23 History fumarate 28 mg-folic acid 800 mcg tablet () Laboratory Tests 02/13/23 02/13/23 20:56 20:57 WBC 9.9 K/mm3 (4.5-10.0) RBC 3.53 L M/mm3 (4.2-5.4) Hgb 10.1 L g/dL (12.0-15.0) Hct 31.2 L % (37.0-47.0) MCV 88.4 fl (80-100) MCH 28.6 pg (26-34) MCHC 32.4 g/dl (32-36) RDW 13.7 % (11.5-14.5) Plt Count 229 k/mm3 (150-375) MPV 8.6 fl (7.4-10.4) Immature Gran % (Auto) 0.7 H % (0-0.5) Neut % (Auto) 76.6 H % (45.5-73.1) Lymph % (Auto) 16.0 L % (18.3-44.2) [place] % (Auto) 6.2 % (2.6-8.5) Eos % (Auto) 0.1 % (0-4.4) Baso % (Auto) 0.4 % (0.2-1.2) Lymph # (Auto) 1.58 K/mm3 (0.9-3.2) [place] # (Auto) 0.6 K/mm3 (0.1-0.6) Eos # (Auto) 0.0 K/mm3 (0-0.3) Baso # (Auto) 0.0 K/mm3 (0.0-0.1) Abs Immat Gran (auto) 0.07 H K/mm3 (0.00-0.031) Absolute Neuts (auto) 7.6 H K/mm3 (1.3-6.7) Absolute Nucleated RBC 0.0 K/mm3 (0.0-0.012) Nucleated RBC % 0.0 % (0.0-0.2) RPR Pending Patient hx anesthesia problems: none Family hx anesthesia problems: none Results Review: All pre-operative results and documents have been reviewed as part of the pre-operative evaluation. [facility] Past Medical History Medical History (Updated 02/13/23 @ 22:06 by Camille Rendon CRNA) IUP (intrauterine ), incidental Family History Family History (Updated 01/30/23 @ 14:44 by Anette Pruitt RN) Father Heart attack Social History Social History Smoking packs per day: 0.1 Smoking cigarettes per day: 2.0 Years smoked: 2 Smoking pack-years: 0.20 Smoking status: Never smoker Substance use: never Lack of Transportation: No Lack of Food: Never True Current Housing: I Have Housing Concerned About Future Housing: No Difficulty Paying Gas/Electric Bills: No Difficulty Paying for Meds: No Currently Unemployed: No Education: Associate Degree Difficulty w/ Childcare or Family Care: No Gender identity (if verbalized by the patient): Female Spiritual care concerns: No Exam Day of Procedure 02/13/23 22:05
[2023-02-13 22:55] LABS: Glucose Point of Care 87 mg/dl (65-105)
--- NOTE | 2023-02-13 23:25 | WPDOBADMIT ---
Obstetrics - Admit Note Admission Note: record reviewed. No pertinent additions to the history and/or any subsequent changes in the physical findings that are not consistent with the expected course of the were found. pt admitted for ROM, contractions, comfortable with epidural, forebag ruptured clear fluid, 5-6/80/-2 Additions to the history and/or subsequent changes in the physical findings follow. None.
[2023-02-13] MEDS: OXYTOCIN 30 UNITS/NS 500 ML 30 UNITS/500 ML BAG IV CONT (23:51)
[2023-02-14] VITALS (96 sets, daily range): BP systolic 81–143; BP diastolic 46–117; PULSE 60–136; RESP 16–18; TEMP 36.4–37.4; O2SAT 88–100
[2023-02-14 02:44] LABS: Glucose Point of Care 73 mg/dl (65-105)
[2023-02-14] MEDS: ONDANSETRON INJ 4 MG/2 ML VIAL IV PUSH (04:50)
--- NOTE | 2023-02-14 04:59 | PM.OBPRVD ---
OB - Delivery Note Procedure Delivery date: 02/14/23 Procedure: Events: Gestational Diabetes and Intrauterine Growth Restriction (IUGR) Delivery augmentation: Pitocin Delivery monitor: External FHT, External Uterine and Internal Uterine Route of delivery: Laceration Description: None Specimen: Yes Quantitative Blood Loss (ml): 100 Anesthesia type: Epidural Disposition: Floor [place] Baby Date of : 02/14/23 Time of : 04:46 Weeks of gestation at delivery: 38 Infant gender: Male Weight (pounds): 5 Weight (ounces): 6 presentation: vertex position: Left Occiput Anterior Placenta delivery description: Spontaneous Cord Vessel Description: 3 Vessels, Nuchal Cord, Loose and Clamped/Cut Narrative: baby to warmer, mother and baby in stable condition
[2023-02-14] MEDS: OXYTOCIN 30 UNITS/NS 500 ML 30 UNITS/500 ML BAG 125 UNITS IV CONT (05:45)
[2023-02-14] MEDS: OXYTOCIN 30 UNITS/NS 500 ML 30 UNITS/500 ML BAG 999 UNITS IV CONT (05:47)
--- NOTE | 2023-02-14 08:27 | OBPPTRN ---
Patient transferred to post room #282 via wheelchair. Support person present. Oriented to unit, room, information board, rooming in, admission packet and security measures. Patient verbalizes understanding.
[2023-02-14] MEDS: MULTIVIT/MIN/PREN/FOL AC/IRON TABLET 1 TAB PO (08:59)
[2023-02-14] MEDS: DOCUSATE SODIUM 100 MG CAPSULE PO (08:59)
[2023-02-14] MEDS: IBUPROFEN 600 MG TABLET PO ×2 (09:03→15:10)
--- NOTE | 2023-02-14 09:03 | PC.NURSE ---
Breast pump provided due to separation from infant. Instructions given on cleaning, care, usage, that there should be no pain, pumping schedule for milk production, collection, and storage of human milk. Patient was assessed for correct placement, flange size, to pump for comfort and nipple stretching/stimulation for adequate milk production every 3 hours (8 times in 24 hours) 1-2 times at night.
[2023-02-14 10:54] LABS: Rapid Plasma Reagin Non-Reactive (NonReactive)
--- NOTE | 2023-02-14 16:48 | PM.OBDSVD ---
DS: Admitting Diagnosis Discharge Date 02/14/23 Admitting Diagnosis SROM OB - DS: Summary OB Procedures : None OB Procedures Intrapartum: Spontaneous Vag Delivery OB Procedures: : None Time Spent with Patient Time attestation: Total time spent providing and/or coordinating discharge services: DS: Data Data Completed and Pending Labs on day of discharge: Labs from last 24 hours 02/14/23 02/13/23 02/13/23 02:41 22:52 20:57 WBC RBC Hgb Hct MCV MCH MCHC RDW Plt Count MPV Immature Gran % (Auto) Neut % (Auto) Lymph % (Auto) [place] % (Auto) Eos % (Auto) Baso % (Auto) Lymph # (Auto) [place] # (Auto) Eos # (Auto) Baso # (Auto) Abs Immat Gran (auto) Absolute Neuts (auto) Absolute Nucleated RBC Nucleated RBC % POC Capillary Glucose 73 87 RPR Non-reactive Blood Type A Negative Antibody Screen Positive Antibody Identification Passive Due to RH Imm Glob Antigen Identification Cancelled MARVIN, IgG Interpret Not Performed MAVRIN, Poly Interpret Negative MARVIN, Complement Interp Not Performed 02/13/23 20:56 WBC 9.9 RBC 3.53 L Hgb 10.1 L Hct 31.2 L MCV 88.4 MCH 28.6 MCHC 32.4 RDW 13.7 Plt Count 229 MPV 8.6 Immature Gran % (Auto) 0.7 H Neut % (Auto) 76.6 H Lymph % (Auto) 16.0 L [place] % (Auto) 6.2 Eos % (Auto) 0.1 Baso % (Auto) 0.4 Lymph # (Auto) 1.58 [place] # (Auto) 0.6 Eos # (Auto) 0.0 Baso # (Auto) 0.0 Abs Immat Gran (auto) 0.07 H Absolute Neuts (auto) 7.6 H Absolute Nucleated RBC 0.0 Nucleated RBC % 0.0 POC Capillary Glucose RPR Blood Type Antibody Screen Antibody Identification Antigen Identification MARVIN, IgG Interpret MARVIN, Poly Interpret MARVIN, Complement Interp Discharge Plan Discharge Attending physician on discharge: Eren Mcgee Discharging Clinician: María Polo Patient Disposition: Home, Self-Care Activity: pelvic rest Diet: regular Discharge Instructions: Education: Mom and Baby Guide Given to: Mother Follow-Up: Call your delivering provider's office for an appointment to be seen in: 4 Weeks Mom should come to the [facility] for the follow-up appointment. Appointment Date/Time: February 15, 2023 at 10:00 am What to expect at your follow-up visit: Blood Pressure Check Physical Assessment Call [phone] if you are unable to keep your appointment time. BREAST CARE: * Wear a snug supportive bra. * For engorgement discomfort: Breast Feeding: * Apply warm moist washcloths * Express milk as needed to relieve engorgement * Wear loose clothing Bottle Feeding: * May apply ice packs * For sore nipples: * Identify correct latch-on * Apply warm moist washcloths before and after nursing * Air dry nipples after nursing * May apply Lansinoh cream to nipples PERINEAL CARE: * Until bleeding stops, use your rhonda bottle after urinating * Change your pad frequently throughout the day * You may take sitz baths several times a day (fill your bathtub with warm water and soak for 20 minutes.) Do NOT bathe in the water * No tub baths until seen by your physician - You may shower ACTIVITY: * Rest as much as possible. * Do not exercise or lift anything heavier than your baby (such as laundry or other children.) * Avoid stairs or driving as much as possible. * Do not put anything into the vagina. No douching, tampons, or sexual activity until seen by physician. NOTIFY PHYSICIAN IF YOU HAVE ANY QUESTIONS OR IF ANY OF THE FOLLOWING SYMPTOMS OCCUR: * If your vaginal bleeding becomes foul smelling. * If your vaginal bleeding becomes more heavy than a period or if your bleeding changes from pink to bright red. However, you may pass an occasional walnut-sized clot once or twice for the first week . * If you experience a sharp, shooting cedrick
[2023-02-15 09:58] VITALS: BP 128/73; PULSE 74; RESP 18; TEMP 36.4; O2SAT 100
== END 2023-02-14 16:40 | disposition home or self-care (01) | DRG 560 ==
LOC: ANHLDR 20:22 → ANHOB2 02-14 08:29
PROVIDERS: Admitting Provider Obstetrics & Gynecology; PCP Family Medicine; Referring Provider Advanced Practice Midwife; Visit Provider Obstetrics & Gynecology
DX: O24.429 Gestational diabetes mellitus in childbirth, unspecified control (principal); O36.5930 Maternal care for other known or suspected poor fetal growth, third trimester, not applicable or unspecified; Z37.0 Single live birth; O69.81X0 Labor and delivery complicated by cord around neck, without compression, not applicable or unspecified; Z3A.38 38 weeks gestation of pregnancy
CPT/HCPCS: 36415; 82948; 85025; 86592; 86850; 86880; 86900; 86901; 86902; 88307; A9270; J2405; J2590; J3010; J7120